=== PATIENT | female | born 1980 | race Caucasian/White ===

== ENCOUNTER 2018-09-20 09:19 | Emergency (ER) | payer OTHER, MEDICAID ==
[2018-09-20 09:52] VITALS: BP 112/52
--- NOTE | 2018-09-20 10:40 | UC ---
Throat Pain/Nasal Chandana HPI - HPI Summary HPI Summary: 37-year-old woman comes in with a chief complaint of sore throat. Symptoms started yesterday. Pain came on suddenly in the afternoon it's down at the level of the Chemo's apple on the left side. It hurts worse when she swallows. No difficulty swallowing or breathing. She was not eating at the time when it occurred and is not worried about foreign body. No fevers no chest congestion. She has been eating and drinking without any relief. - History of Current Complaint Chief Complaint: UCRespiratory Stated Complaint: ST Time Seen by Provider: 09/20/18 10:32 Hx Last Menstrual Period: 09/19/18 Pain Intensity: 8 - Allergies/Home Medications Allergies/Adverse Reactions: Allergies Allergy/AdvReac Type Severity Reaction Status Date / Time metronidazole [From Flagyl] Allergy See Comment Verified 09/20/18 09:48 PMH/Surg Hx/FS Hx/Imm Hx Previously Healthy: Yes - Surgical History Surgical History: Yes Surgery Procedure, Year, and Place: [place]. T&A. hysteroscopy. L breast biopsies- benign. Lung biopsy as an infant. EAR TUBES B/L. fallopian tubes removed. - Family History Known Family History: Positive: Cardiac Disease, Hypertension, Diabetes - Social History Alcohol Use: Rare Substance Use Type: None Smoking Status (MU): Never Smoked Tobacco - Immunization History Most Recent Influenza Vaccination: 2014 Review of Systems All Other Systems Reviewed And Are Negative: Yes Constitutional: Positive: Negative Skin: Positive: Negative Eyes: Positive: Negative ENT: Positive: Sore Throat Respiratory: Positive: Negative Cardiovascular: Positive: Negative Gastrointestinal: Positive: Negative Motor: Positive: Negative Neurovascular: Positive: Negative Musculoskeletal: Positive: Negative Neurological: Positive: Negative Psychological: Positive: Negative Is Patient Immunocompromised?: No Physical Exam Triage Information Reviewed: Yes Appearance: Well-Appearing, No Pain Distress, Well-Nourished Vital Signs: Initial Vital Signs Temp 97.3 F 09/20/18 09:48 Pulse 60 09/20/18 09:48 Resp 16 09/20/18 09:48 BP 112/52 09/20/18 09:48 Pulse Ox 100 09/20/18 09:48 Vital Signs Reviewed: Yes Eye Exam: Normal Eyes: Positive: Conjunctiva Clear ENT: Positive: Pharynx normal, TMs normal Neck: Positive: Supple, Other: - At the level of the upper trachea the patient is tender on the left side. I do not appreciate any mass. There is no stridor. Respiratory: Positive: Lungs clear, Normal breath sounds, No respiratory distress Cardiovascular: Positive: RRR Musculoskeletal Exam: Normal Musculoskeletal: Positive: Strength Intact Neurological Exam: Normal Neurological: Positive: Alert, Muscle Tone Normal Psychological Exam: Normal Psychological: Positive: Age Appropriate Behavior Skin Exam: Normal Throat Pain/Nasal Course/Dx - Course Course Of Treatment: DISCUSSED VIRAL VERSES BACTERIAL INFECTION AND THE ROLE OF ANTIBIOTICS. THE PATIENT WISHES TO BE ON ANTIBIOTIC AT THIS TIME. By history there should not be any foreign body. At this time the patient's able to eat and drink and breathe normally. I let her know if anything got worse she sneezed get reevaluated - Differential Dx/Diagnosis Provider Diagnosis: Pharyngitis Discharge - Sign-Out/Discharge Documenting (check all that apply): Patient Departure All imaging exams completed and their final reports reviewed: No Studies - Discharge Plan Condition: Stable Disposition: HOME Prescriptions: Amoxicillin PO (*) [Amoxicillin 875 MG (*)] 875 mg PO BID #20 tab Patient Education Materials: Pharyngitis (ED) Referrals: Jerilyn Dial MD [Primary Care Provider] - Additional Instructions: FOLLOW UP WITH YOUR DOCTOR IF NOT COMPLETELY IMPROVED. GET RECHECKED SOONER WITH ANY WORSENING OF YOUR CONDITION OR QUESTIONS OR CONCERNS. - Billing Disposition and Condition Condition: STABLE Disposition: Home
== END 2018-09-20 10:44 | disposition home or self-care (01) ==
LOC: UCCORT 09:19
DX: J02.9 Acute pharyngitis, unspecified (principal); Z88.1 Allergy status to other antibiotic agents
CPT/HCPCS: 87651; 99212; G0463

== ENCOUNTER 2019-05-16 09:17 | Emergency (ER) | payer OTHER, MEDICAID ==
[2019-05-16 09:35] VITALS: BP 107/70
--- NOTE | 2019-05-16 10:47 | UC ---
FLU HPI - HPI Summary HPI Summary: 38-year-old female presents with one-week history of body aches, fatigue, chills , productive cough for yellowish green sputum, and occasional wheezing and shortness of breath. Reports history of bronchitis-induced asthma as well as multiple episodes of pneumonia. States last episode of pneumonia was approximately 2 years ago and did require hospitalization. Denies known fever, nasal congestion, ear pain, sore throat, chest pain, or palpitations. - History of Current Complaint Chief Complaint: UCGeneralIllness Stated Complaint: BODY ACHES/CONGESTION/VARGAS Time Seen by Provider: 05/16/19 10:31 Hx Obtained From: Patient Hx Last Menstrual Period: 09/19/18 Pain Intensity: 4 - Allergy/Home Medications Allergies/Adverse Reactions: Allergies Allergy/AdvReac Type Severity Reaction Status Date / Time metronidazole [From Flagyl] Allergy See Comment Verified 05/16/19 09:35 Home Medications: Home Medications Spironolactone 50 mg PO DAILY 05/16/19 [History Confirmed 05/16/19] PMH/Surg Hx/FS Hx/Imm Hx Previously Healthy: Yes Endocrine History: Thyroid Disease Respiratory History: Bronchitis, Pneumonia - Surgical History Surgical History: Yes Surgery Procedure, Year, and Place: [place]. T&A. hysteroscopy. L breast biopsies- benign. Lung biopsy as an infant. EAR TUBES B/L. fallopian tubes removed. - Family History Known Family History: Positive: Cardiac Disease, Hypertension, Diabetes - Social History Occupation: Unemployed Lives: With Family Alcohol Use: Rare Substance Use Type: None Smoking Status (MU): Never Smoked Tobacco - Immunization History Most Recent Influenza Vaccination: 2014 Review of Systems All Other Systems Reviewed And Are Negative: Yes Constitutional: Positive: Chills, Fatigue. Negative: Fever Eyes: Negative: Drainage, Eye Redness ENT: Negative: Sore Throat, Ear Ache, Nasal Discharge, Sinus Congestion, Sinus Pain/Tenderness Respiratory: Positive: Shortness Of Breath, Cough, Other - Wheezing Cardiovascular: Negative: Palpitations, Chest Pain Gastrointestinal: Positive: Negative Genitourinary: Positive: Negative Musculoskeletal: Positive: Negative Neurological: Positive: Negative Is Patient Immunocompromised?: No Physical Exam - Summary Physical Exam Summary: GENERAL APPEARANCE: Well developed, well nourished, alert and cooperative, and appears to be in no acute distress. EYES: Conjunctiva clear. No drainage. EARS: External auditory canals and tympanic membranes clear, hearing grossly intact. NOSE: No nasal discharge. THROAT: Pharynx normal. Tonsils surgically absent. Uvula midline. NECK: Neck supple, non-tender without lymphadenopathy. CARDIAC: Normal S1 and S2. No S3, S4 or murmurs. Rhythm is regular. There is no peripheral edema, cyanosis or pallor. Extremities are warm and well perfused. Capillary refill is less than 2 seconds. Peripheral pulses intact. LUNGS: Clear to auscultation without rales, rhonchi, wheezing or diminished breath sounds. Dry, non-productive cough. ABDOMEN: Positive bowel sounds. Soft, nondistended, nontender. No guarding or rebound. No masses or hepatosplenomegally. MUSKULOSKELETAL: ROM intact to all extremities. No joint erythema or tenderness. Normal muscular development. Normal gait. SKIN: Skin normal color, texture and turgor with no lesions or eruptions. Triage Information Reviewed: Yes Vital Signs: Initial Vital Signs Temp 98.4 F 05/16/19 09:32 Pulse 92 05/16/19 09:32 Resp 20 05/16/19 09:32 BP 107/70 05/16/19 09:32 Pulse Ox 98 05/16/19 09:32 Vital Signs Reviewed: Yes Flu Course/Dx - Course Course Of Treatment: 38-year-old female presents with one-week history of body aches, fatigue, chills , productive cough for yellowish green sputum, and occasional wheezing and shortness of breath. Reports history of bronchitis-induced asthma as well as multiple episodes of pneumonia. States last episode of pneumonia was approximately 2 years ago and did require hospitalization. Denies known fever, nasal congestion, ear pain, sore throat, chest pain, or palpitations. Afebrile. Vital signs stable. Patient had a dry nonproductive cough with clear bilateral breath sounds and otherwise unremarkable exam. Discussed with the patient that her history and exam are consistent with an acute bronchitis and is likely viral in origin. Patient expresses concern that with her history of multiple episodes of pneumonia she would prefer to start antibiotics at this time. I reviewed the risks and benefits of treating with antibiotics for a likely viral syndrome and patient continues to desire treatment at this time. She is prescribed azithromycin 250 mg 2 tabs today then 1 tablet daily for the next 4 days. I also provided her with an albuterol inhaler as well as Tessalon Perles for symptomatic treatment. She is to follow-up with her primary care provider in 3-5 days if symptoms are not improving. Symmetric guidance and warning symptoms were reviewed with the patient. Verbalizes understanding and agrees with plan of care. - Differential Dx/Diagnosis Differential Diagnosis/HQI/PQRI: Bronchitis, Influenza, Pneumonia, Upper Respiratory Infection Provider Diagnosis: Acute bronchitis Discharge ED - Sign-Out/Discharge Documenting (check all that apply): Patient Departure All imaging exams completed and their final reports reviewed: No Studies - Discharge Plan Condition: Stable Disposition: HOME Prescriptions: Albuterol HFA INHALER* [Ventolin HFA Inhaler*] 2 puff INH Q4H PRN #1 mdi PRN Reason: Sob/Wheezing Azithromyxin LUIGI (NF) [Z-Luigi (Zithromax) 250 mg tabs #6] 2 tab PO .TODAY, THEN 1 DAILY #6 tab Benzonatate CAP* [Tessalon 100 MG CAP*] 100 mg PO TID PRN #21 cap PRN Reason: Cough Patient Education Materials: Acute Bronchitis (ED) Referrals: Jerilyn Dial MD [Primary Care Provider] - Additional Instructions: Your history and exam are consistent with acute bronchitis. Start azithromycin 2 tabs today then 1 tab a day for the next 4 days. Get plenty of rest. Drink plenty of fluids. Run a cool mist humidifer in your room at night. Use albuterol inhaler 2 puffs every 4-6 hours as needed for shortness of breath or wheezing. Take Tessalon Perles 1 cap every 8 hours as needed for cough. Take over the counter acetaminophen (Tylenol) or ibuprofen (Advil, Motrin) according to directions as needed for pain or fever. Follow up with your primary care provider in 3-5 days if symptoms do not improve. Seek immediate medical attention in the emergency room if you have fever greater than 100.5 F despite taking acetaminophen or ibuprofen, have chest pain , difficulty breathing, or have any worsening of symptoms. - Billing Disposition and Condition Condition: STABLE Disposition: Home
== END 2019-05-16 11:02 | disposition home or self-care (01) ==
LOC: UCCORT 09:17
DX: J20.9 Acute bronchitis, unspecified (principal); Z88.1 Allergy status to other antibiotic agents
CPT/HCPCS: 99212; G0463